=== PATIENT | female | born 1985 | race Caucasian/White ===

== ENCOUNTER 2017-06-26 01:23 | Emergency (ER) | payer BC ==
[~2017-06-26] VITALS: Ht 162.6 cm; Wt 59.4 kg
[~2017-06-26 01:23] MED LIST: PRENTAB26 PO
[2017-06-26 01:28] VITALS: TEMP 37.1; Ht 162.6 cm; Wt 59.4 kg
[2017-06-26] MEDS ORDERED: ALBUT/IPRATROP 3MG/0.5MG NEB 3 ML VIAL INH SCH (02:00)
--- NOTE | 2017-06-26 02:21 | EMERGENCY ROOM VISIT NOTE ---
History Report prepared by Araceli: Steph Bowers Under the Supervision of: Dr. Tylor Church D.O. First contact with patient: 01:40 Chief Complaint: RESPIRATORY PROBLEMS Stated Complaint: RESP PROB Nursing Triage Summary: Patient reports flu like symptoms for a week. Patient states she is having coughing fits and feels as if she will pass out from them. History of Present Illness The patient is a 32 year old female who presents to the Emergency Room with complaints of persistent cough starting earlier today. The patient started getting sick with a cold 5 days ago. Her family has been sick recently. The patient has had coughing fits today. She feels she is able to breathe deeply, but she is having coughing to the point of feeling lightheaded. The patient tried taking Delsym today to no significant relief. She also tried using her inhaler to no relief. The patient has had rhinorrhea and congestion. She denies any fever. She has a history of asthma. Source of History: patient, parent Onset: earlier today Position: other (global) Quality: other (cough) Timing: other (persistent) Associated Symptoms: No fevers Note: Pt reports congestion and rhinorrhea. Review of Systems See HPI for pertinent positives and negatives. A total of ten systems were reviewed and were otherwise negative. Past Medical & Surgical Medical Problems: (1) Uterine contractions at greater than 20 weeks of gestation Family History No pertinent family history stated. Social History Smoking Status: Never Smoker Housing Status: lives with family Current/Historical Medications Scheduled PRN Albuterol Hfa (Ventolin Hfa), 2 PUFFS INH Q6H PRN for SOB/Wheezing Allergies Coded Allergies: Apple (Verified Allergy, Intermediate, THROAT SWELLING, 06/26/17) Carrot (Verified Allergy, Intermediate, TROAT SWELLING, 06/26/17) Penicillins (Verified Allergy, Unknown, UKN, 06/26/17) Uncoded Allergies: DOXYCYCLINE,AMOXICILLIN,BIAXIN (Allergy, Mild, Vomiting, 01/14/16) Physical Exam Vital Signs Date Time Temp Pulse Resp B/P (MAP) Pulse Ox O2 Delivery O2 Flow Rate FiO2 06/26/17 01:28 37.1 119 20 118/77 97 Room Air Physical Exam GENERAL: Awake, alert, well-appearing, in no distress HENT: Normocephalic, atraumatic. Oropharynx unremarkable. EYES: Normal conjunctiva. Sclera non-icteric. NECK: Supple. No nuchal rigidity. FROM. No JVD. RESPIRATORY: Clear to auscultation. No wheezing. CARDIAC: Regular rate, normal rhythm. Extremities warm and well perfused. Pulses equal. ABDOMEN: Soft, non-distended. No tenderness to palpation. No rebound or guarding. No masses. RECTAL: Deferred. MUSCULOSKELETAL: Chest examination reveals no tenderness. The back is symmetrical on inspection without obvious abnormality. There is no CVA tenderness to palpation. No joint edema. LOWER EXTREMITIES: Calves are equal size bilaterally and non-tender. No edema. No discoloration. NEURO: Normal sensorium. No sensory or motor deficits noted. SKIN: No rash or jaundice noted. Medical Decision & Procedures Medications Administered Medications (Trade) Dose Ordered Sig/Davina Route Start Time Stop Time Status Last Admin Dose Admin Albuterol/ Ipratropium (Duoneb) 3 ml NOW INH 06/26/17 02:00 07/26/17 01:59 06/26/17 02:04 3 ML ED Course 0151: The patient was evaluated in room B9. A complete history and physical exam was performed. 0200: Duoneb 3 ml INH. 0244: I reevaluated the patient. She is feeling much better. I discussed results and discharge instructions: she verbalized understanding and agreement. The patient is ready for discharge. Medical Decision Differential diagnoses include but are not limited to; bronchitis, URI, bronchospasm, asthma. Feels much improved on repeat examination after DuoNeb. I discussed evaluation with the patient patient's mother at bedside. Medication Reconcilliation Current Medication List: was personally reviewed by me Blood Pressure Screening Patient's blood pressure: Normal blood pressure Blood pressure disposition: Did not require urgent referral Impression Primary Impression: Bronchitis Scribe Attestation The scribe's documentation has been prepared under my direction and personally reviewed by me in its entirety. I confirm that the note above accurately reflects all work, treatment, procedures, and medical decision making performed by me. Departure Information Dispostion Home / Self-Care Referrals Ronni Kang M.D. (PCP) Patient Instructions Bronchitis Acute, My [facility]
[2017-06-26] MEDS ORDERED: VNTHFA/IN INH (02:45)
[2017-06-26 03:21] VITALS: BP 111/70; PULSE 76; O2SAT 98
== END 2017-06-26 03:23 | disposition home or self-care (01) ==
LOC: C.EDB 01:25
DX: J40 Bronchitis, not specified as acute or chronic (principal); Z88.0 Allergy status to penicillin; Z91.018 Allergy to other foods